=== PATIENT | male | born 1970 | race Caucasian/White ===

== ENCOUNTER 2020-10-01 22:14 | Emergency (ER) | payer SELFPAY ==
[~2020-10-01] VITALS: Ht 167.6 cm; Wt 111.1 kg
[2020-10-01 22:25] VITALS: BP 156/98
[2020-10-01 23:03] LABS: APPEARANCE,URINE CLEAR (CLEAR); BILIRUBIN,URINE NEGATIVE (NEGATIVE); BLOOD, URINE TRACE-I (NEGATIVE); COLOR,URINE YELLOW (YELLOW); LEUKOCYTE ESTERASE ,URINE NEGATIVE (NEGATIVE); NITRITE, URINE NEGATIVE (NEGATIVE); UGLUCOSE NEGATIVE (NEGATIVE)
[2020-10-01 23:17] LABS: WBC,URINE 0-5 /HPF (0-5)
[2020-10-02] MEDS ORDERED: cefTRIAXone 1,000 MG in LIDOCAINE MPF 1% 2.1 ML IM ONE ×2
[2020-10-02] MEDS ORDERED: PHENAZOPYRIDINE 100 MG TAB PO ONE
[2020-10-02] MEDS ORDERED: CEPH500C16 PO (00:04)
[2020-10-02] MEDS ORDERED: PHEN-1877 PO (00:04)
[2020-10-02] MEDS ORDERED: KETOROLAC 30 MG/ML VIAL IM ONE (00:05)
[2020-10-02] MEDS ORDERED: cefTRIAXone 1,000 MG VIAL ONE (00:25)
[2020-10-02] MEDS ORDERED: LIDOCAINE MPF 1% 5 ML ONE (00:26)
[2020-10-02 00:53] VITALS: BP 135/87
== END 2020-10-02 00:50 | disposition home or self-care (01) ==
LOC: MED 22:14
DX: N39.0 Urinary tract infection, site not specified (principal)
CPT/HCPCS: 81001; 87086; 96372; 99284; J0696; J1885; J2001